=== PATIENT | female | born 1970 | race Caucasian/White ===

== ENCOUNTER → 2022-01-20 | Outpatient (CLI) | payer OTHER ==
[~2022-01-20] MED LIST: HEPARIN; LASIX20 MG PO; LIPITOR40 MG PO; LO-DOSE ASPIRIN81 MG PO; METOPROLOL SUCC25 MG PO; MIRTAZAPINE30 MG PO; PLAVIX75 MG PO; POTASSIUM CHLO10 ME1 PO; PROTONIX20 MG PO; PROZAC20 MG PO; RANOLAZINE ER1000 MG PO
[2022-01-20 10:44] LABS: HEMOGLOBIN 13.3 gm/dl (12.3-15.3); RED BLOOD COUNT 4.2 M/UL (4.00-5.10); WHITE BLOOD COUNT 11.2 K/UL (4.5-11.0)
[2022-01-20 11:07] LABS: BUN/CREATININE RATIO 18 (0-10)
== END ==
LOC: OPSV2 09:00
PROVIDERS: Obstetrics & Gynecology
DX: Z01.818 Encounter for other preprocedural examination (principal); N93.9 Abnormal uterine and vaginal bleeding, unspecified; I10 Essential (primary) hypertension
CPT/HCPCS: 80048; 81001; 85025; 93005

== ENCOUNTER 2022-02-01 04:58 | Inpatient (IN) | payer OTHER ==
[~2022-02-01] VITALS: Ht 165.1 cm; Wt 98.4 kg
[2022-02-01] MEDS ORDERED: PERCOCET 5-3251 EACH PO (11:22)
[2022-02-02 03:07] LABS: HEMOGLOBIN 10.1 gm/dl (12.3-15.3)
== END 2022-02-02 09:42 | disposition home or self-care (01) | DRG 743 ==
LOC: CDU 04:58 → MED SURG 4 04:58
PROVIDERS: ADMIT Obstetrics & Gynecology
PROC: 0UB70ZZ Excision of Bilateral Fallopian Tubes, Open Approach (ICD-10-PCS; 2022-02-01)
PROC: 0UB20ZZ Excision of Bilateral Ovaries, Open Approach (ICD-10-PCS; 2022-02-01)
PROC: 0UT90ZZ Resection of Uterus, Open Approach (ICD-10-PCS; principal; 2022-02-01 07:30)
DX: N93.9 Abnormal uterine and vaginal bleeding, unspecified (principal); J44.9 Chronic obstructive pulmonary disease, unspecified; I50.9 Heart failure, unspecified; Z20.822 Contact with and (suspected) exposure to COVID-19; E11.9 Type 2 diabetes mellitus without complications; I11.0 Hypertensive heart disease with heart failure; Z88.0 Allergy status to penicillin; Z91.010 Allergy to peanuts; Z85.43 Personal history of malignant neoplasm of ovary; Z87.891 Personal history of nicotine dependence; Z98.51 Tubal ligation status; Z98.890 Other specified postprocedural states; Z79.82 Long term (current) use of aspirin; Z79.899 Other long term (current) drug therapy
CPT/HCPCS: 36415; 80048; 84703; 85014; 85018; 94640; J1100; J1170; J1580; J1644; J1885; J2001; J2250; J2405; J2704; J2795; J3010; J7120